=== PATIENT | male | born 1985 | race Two or more races ===

== ENCOUNTER 2024-02-12 15:24 | Inpatient (IN) | payer OTHER ==
[2024-02-12 15:54] VITALS: BMI 26.9
[2024-02-12] MEDS ORDERED: guaiFENesin 600 MG TABLET.ER (FP) PO PRN (16:57)
[2024-02-12] MEDS ORDERED: IBUPROFEN 400 MG TABLET (FP) PO PRN (16:57)
[2024-02-12] MEDS ORDERED: NALOXONE HCL 0.4 MG/ML VIAL IM PRN (16:57)
[2024-02-12] MEDS ORDERED: hydrOXYzine PAMOATE 25 MG CAPSULE (FP) PO PRN (16:57)
[2024-02-12] MEDS ORDERED: BENZOCAINE/MENTHOL (CHLORASEPTIC ) LOZENGE MM PRN (16:57)
[2024-02-12] MEDS ORDERED: MAGNESIUM HYDROX 2400MG/30ML ORAL SUSPENSION 30 ML CUP PO PRN (16:57)
[2024-02-12] MEDS ORDERED: METHOCARBAMOL 500 MG TABLET PO PRN (16:57)
[2024-02-12] MEDS ORDERED: BISMUTH SUBSALICYLATE 524 MG/30 ML PO PRN (16:57)
[2024-02-12] MEDS ORDERED: NALOXONE HCL (KLOXXADO) 8 MG SPRAY NS PRN (16:57)
[2024-02-12] MEDS ORDERED: ONDANSETRON *ODT* 4 MG TABLET SL PRN (16:57)
[2024-02-12] MEDS ORDERED: IBUPROFEN 600 MG TABLET (FP) PO PRN (16:57)
[2024-02-12] MEDS ORDERED: LOPERAMIDE HCL 2 MG CAPSULE PO PRN (16:57)
[2024-02-12] MEDS ORDERED: MAG HYDROX/AL HYDROX/SIMETH 30 ML UNIT-DOSE CUP PO PRN (16:57)
[2024-02-12] MEDS ORDERED: DICYCLOMINE HCL 10 MG CAPSULE PO PRN (16:57)
[2024-02-12] MEDS ORDERED: BENZONATATE 200 MG CAPSULE PO PRN (16:57)
[2024-02-12] MEDS ORDERED: POLYETHYLENE GLYCOL (HEALTHYLAX) 3350 17 GM PACKET PO PRN (16:57)
[2024-02-12] MEDS ORDERED: ACETAMINOPHEN 325 MG TABLET (FP) ONE (17:24)
[2024-02-12] MEDS: ACETAMINOPHEN 325 MG TABLET (FP) PO PRN (17:27)
[2024-02-12] MEDS: MELATONIN 5 MG TABLETS PO SCH (22:53)
[2024-02-12] MEDS: THIAMINE 100 MG TABLET PO SCH (22:53)
[2024-02-13 09:30] LABS: HEMOGLOBIN 13.6 GM/dL (11.7-16.9); MCH 30.8 pg (25.7-33.7); MCHC 33.9 g/dl (32.0-35.9); MEAN CELL VOLUME 90.7 fl (80-96); MEAN PLT VOLUME 8.1 fl (7.5-11.1); PLATELET COUNT 302 10^3/uL (134-434); RBC 4.41 M/mm3 (4.00-5.60); RDW 16.1 % (11.9-15.9); WHITE BLOOD COUNT 5.3 K/mm3 (4.0-10.0)
[2024-02-13 09:49] LABS: CHLORIDE 104 mmol/L (98-107); POTASSIUM 4.7 mmol/L (3.5-5.1); SODIUM 136 mmol/L (136-145)
[2024-02-13 09:53] LABS: ALBUMIN 3.4 g/dl (3.4-5.0); ANION GAP 3 mmol/L (4-13); CALCIUM 8.9 mg/dL (8.5-10.1); CO2 30 mmol/L (21-32); GLUCOSE,RANDOM 90 mg/dL (74-106)
[2024-02-13 09:54] LABS: BLOOD UREA NITROGEN 7.9 mg/dL (7-18)
[2024-02-13 09:56] LABS: SGOT/AST 171 U/L (15-37); SGPT/ALT 56 U/L (13-61)
[2024-02-13 09:58] LABS: BILIRUBIN,TOTAL 0.8 mg/dL (0.2-1); TOT PROT 6.1 g/dl (6.4-8.2)
[2024-02-13 09:59] LABS: ALK PHOS 57 U/L (45-117)
[2024-02-13] MEDS: PRENATAL VITAMINS W/ FOLIC ACID TABLET (FP) PO SCH (10:53)
[2024-02-13 12:37] LABS: HIV INTERPRETATION NEGATIVE (NEGATIVE)
[2024-02-13] MEDS: LACTULOSE 20 GM/30 ML UDC (FOR ORAL USE ONLY) PO SCH (14:07)
[2024-02-13] MEDS: amLODIPine BESYLATE 5 MG TABLET (FP) PO SCH ×2 (19:39→19:40)
[2024-02-13 20:58] VITALS: RESP 18
[2024-02-14 06:06] VITALS: BP 143/98; PULSE 61; TEMP 97.3
== END 2024-02-14 09:31 | disposition home or self-care (01) | DRG 775 ==
LOC: YASAS 15:24 → Y3N 17:17
PROVIDERS: ADMIT Allergy & Immunology; ATTEND Allergy & Immunology
PROC: HZ2ZZZZ Detoxification Services for Substance Abuse Treatment (ICD-10-PCS; principal; 2024-02-12)
DX: F10.20 Alcohol dependence, uncomplicated (principal); F17.210 Nicotine dependence, cigarettes, uncomplicated; J45.909 Unspecified asthma, uncomplicated; R74.8 Abnormal levels of other serum enzymes; Z86.19 Personal history of other infectious and parasitic diseases; Z28.310 Unvaccinated for COVID-19; Z28.9 Immunization not carried out for unspecified reason; Z59.01 Sheltered homelessness
CPT/HCPCS: 36415; 80053; 80305; 80307; 85027; 86780; 86803; 87389; 93005; 93010

== ENCOUNTER 2025-01-31 12:29 | Inpatient (IN) | payer OTHER ==
[2025-01-31 13:21] VITALS: BMI 28.8
[2025-01-31] MEDS ORDERED: BISMUTH SUBSALICYLATE 524 MG/30 ML PO PRN (13:41)
[2025-01-31] MEDS ORDERED: MAG HYDROX/AL HYDROX/SIMETH 30 ML UNIT-DOSE CUP PO PRN (13:41)
[2025-01-31] MEDS ORDERED: BENZOCAINE/MENTHOL (CHLORASEPTIC ) LOZENGE MM PRN (13:41)
[2025-01-31] MEDS ORDERED: NALOXONE (NARCAN) HCL 4 MG/0.1 ML SPRAY NS PRN (13:41)
[2025-01-31] MEDS ORDERED: LOPERAMIDE HCL 2 MG CAPSULE PO PRN (13:41)
[2025-01-31] MEDS ORDERED: guaiFENesin 600 MG TABLET.ER (FP) PO PRN (13:41)
[2025-01-31] MEDS ORDERED: DICYCLOMINE HCL 10 MG CAPSULE PO PRN (13:41)
[2025-01-31] MEDS ORDERED: POLYETHYLENE GLYCOL (HEALTHYLAX) 3350 17 GM PACKET PO PRN (13:41)
[2025-01-31] MEDS ORDERED: MAGNESIUM HYDROX 2400MG/30ML ORAL SUSPENSION 30 ML CUP PO PRN (13:41)
[2025-01-31] MEDS ORDERED: hydrOXYzine PAMOATE 25 MG CAPSULE (FP) PO PRN (13:41)
[2025-01-31] MEDS ORDERED: diazePAM 5 MG TABLET PO PRN (13:41)
[2025-01-31] MEDS ORDERED: BENZONATATE 200 MG CAPSULE PO PRN (13:41)
[2025-01-31] MEDS ORDERED: ONDANSETRON *ODT* 4 MG TABLET SL PRN (13:41)
[2025-01-31] MEDS ORDERED: IBUPROFEN 400 MG TABLET (FP) PO PRN (13:41)
[2025-01-31] MEDS ORDERED: METHOCARBAMOL 500 MG TABLET PO PRN (13:41)
[2025-01-31] MEDS: NICOTINE 14 MG/24 HOURS TOPICAL PATCH TD SCH (14:58)
[2025-01-31] MEDS ORDERED: IBUPROFEN 600 MG TABLET (FP) PO ONE (14:59)
[2025-01-31] MEDS ORDERED: PRENATAL VITAMINS W/ FOLIC ACID TABLET (FP) PO ONE (14:59)
[2025-01-31] MEDS: IBUPROFEN 600 MG TABLET (FP) PO PRN (15:00)
[2025-01-31] MEDS: PRENATAL VITAMINS W/ FOLIC ACID TABLET (FP) PO SCH (15:02)
[2025-01-31] MEDS: diazePAM 5 MG TABLET PO SCH (17:41)
[2025-01-31] MEDS: MELATONIN 5 MG TABLETS PO SCH (22:46)
[2025-01-31] MEDS: THIAMINE 100 MG TABLET PO SCH (22:46)
[2025-02-01] MEDS: INSULIN ASPART SLIDING SCALE (NOVOLOG) 1 VIAL SQ SCH (07:28)
[2025-02-01] MEDS: ACETAMINOPHEN 325 MG TABLET (FP) PO PRN (10:26)
[2025-02-01 10:38] LABS: HEMATOCRIT 38.4 % (40.1-51.0); HEMOGLOBIN 12.7 g/dL (13.7-17.5); MCHC 33.1 g/dl (32.3-36.5); MEAN CELL VOLUME 88.7 fl (79.0-92.2); MEAN PLT VOLUME 9.6 fl (9.4-12.4); PLATELET COUNT 253 x10^3/uL (163-337); RDW 15.9 % (12.0-15.6)
[2025-02-01 10:48] LABS: CHLORIDE 106 mmol/L (98-107); POTASSIUM 4.5 mmol/L (3.5-5.1); SODIUM 139 mmol/L (136-145)
[2025-02-01 11:01] LABS: CALCIUM 9.1 mg/dL (8.5-10.1)
[2025-02-01 11:02] LABS: ALBUMIN 3.2 g/dl (3.4-5.0); ANION GAP 5 mmol/L (4-13); BLOOD UREA NITROGEN 14.3 mg/dL (7-18); CO2 28 mmol/L (21-32); GLUCOSE,RANDOM 96 mg/dL (74-106)
[2025-02-01 11:05] LABS: CREATININE 1.1 mg/dL (0.55-1.3); SGOT/AST 24 U/L (15-37); SGPT/ALT 19 U/L (13-61)
[2025-02-01 11:07] LABS: BILIRUBIN,TOTAL 0.4 mg/dL (0.2-1); TOT PROT 5.8 g/dl (6.4-8.2)
[2025-02-01 11:08] LABS: ALK PHOS 40 U/L (45-117)
[2025-02-01] MEDS: MELATONIN 5 MG TABLETS PO SCH (22:22)
[2025-02-02] MEDS: diazePAM 5 MG TABLET PO SCH (06:55)
[2025-02-02 09:00] VITALS: RESP 18
[2025-02-02 12:58] VITALS: BP 132/81; PULSE 76; TEMP 98.3
[2025-02-03] MEDS ORDERED: diazePAM 5 MG TABLET PO SCH (06:00)
[2025-02-04] MEDS ORDERED: diazePAM 5 MG TABLET PO ONE (06:00)
== END 2025-02-02 14:26 | disposition home or self-care (01) | DRG 775 ==
LOC: YASAS 12:29 → Y3N 15:08
PROVIDERS: ADMIT Allergy & Immunology; ATTEND Allergy & Immunology
PROC: HZ2ZZZZ Detoxification Services for Substance Abuse Treatment (ICD-10-PCS; principal; 2025-01-31)
DX: F10.230 Alcohol dependence with withdrawal, uncomplicated (principal); F17.210 Nicotine dependence, cigarettes, uncomplicated; J45.20 Mild intermittent asthma, uncomplicated; R73.03 Prediabetes
CPT/HCPCS: 36415; 80053; 80305; 80307; 82962; 85027; 86780; 93005; 93010